=== PATIENT | male | born 1990 | race Caucasian/White ===

== ENCOUNTER 2016-12-01 00:21 | Emergency (ER) | payer OTHER ==
[2016-12-01 00:26] VITALS: BP 130/79; PULSE 87; TEMP 97.6; BMI 26.6
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
[2016-12-01] MEDS ORDERED: SODIUM CHLORIDE 0.9% 1000 ML INFUS.BAG IV ONE (02:00)
== END 2016-12-01 02:58 | disposition home or self-care (01) ==
LOC: JER 00:21
DX: F10.920 Alcohol use, unspecified with intoxication, uncomplicated (principal)
CPT/HCPCS: 99283-25

== ENCOUNTER 2017-04-03 18:54 | Emergency (ER) | payer OTHER ==
[2017-04-03 19:00] VITALS: BP 137/82; PULSE 77; TEMP 98.1; BMI 23.5
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
== END 2017-04-03 20:00 | disposition home or self-care (01) ==
LOC: FER 18:54
DX: S62.91XA Unspecified fracture of right hand, initial encounter for closed fracture (principal); X58.XXXA Exposure to other specified factors, initial encounter; Y93.89 Activity, other specified; Y92.9 Unspecified place or not applicable
CPT/HCPCS: 73130-TC-RT; 99283-25

== ENCOUNTER 2021-03-08 06:56 | Emergency (ER) | payer OTHER ==
[2021-03-08 07:04] VITALS: BP 112/69; PULSE 85; TEMP 98.1; BMI 25.0
[2021-03-08] MEDS ORDERED: DIPHTH,PERTUSS(ACELL),TET 0.5 ML DISP.SYRIN IM ONE ×2 (07:19→07:26)
== END 2021-03-08 07:59 | disposition home or self-care (01) ==
LOC: FER 06:56
PROC: 0HQFXZZ Repair Right Hand Skin, External Approach (ICD-10-PCS; principal; 2021-03-08)
PROC: 3E0234Z Introduction of Serum, Toxoid and Vaccine into Muscle, Percutaneous Approach (ICD-10-PCS; 2021-03-08)
DX: S61.011A Laceration without foreign body of right thumb without damage to nail, initial encounter (principal); W26.0XXA Contact with knife, initial encounter; Y92.9 Unspecified place or not applicable
CPT/HCPCS: 90715; 99284-25

== ENCOUNTER 2021-05-30 20:54 | Emergency (ER) | payer OTHER ==
[2021-05-30 21:09] VITALS: BP 118/64; PULSE 78; TEMP 99.1; BMI 25.0
[2021-05-30] MEDS ORDERED: LIDOCAINE 5% TOPICAL PATCH TP ONE (21:29)
[2021-05-30] MEDS ORDERED: ACETAMINOPHEN 500 MG TABLET (FP) PO ONE (21:29)
[2021-05-30] MEDS ORDERED: ACETAMINOPHEN 500 MG TABLET (FP) ONE (21:32)
[2021-05-30] MEDS ORDERED: LIDOCAINE 5% TOPICAL PATCH ONE (21:32)
[2021-05-30] MEDS ORDERED: LIDOCAINE PATCH REMOVAL MC SCH (22:00)
== END 2021-05-30 21:59 | disposition home or self-care (01) ==
LOC: FER 20:54
DX: M62.838 Other muscle spasm (principal); M25.511 Pain in right shoulder; M77.11 Lateral epicondylitis, right elbow
CPT/HCPCS: 73030-TC-RT-FY; 99283-25